=== PATIENT | female | born 1980 | race Caucasian/White ===

== ENCOUNTER 2022-02-04 16:39 | Emergency (ER) | payer OTHER, SELFPAY ==
[2022-02-04 16:58] VITALS: BP 152/78; PULSE 54; RESP 20; TEMP 36.7; O2SAT 100
[2022-02-04 17:31] LABS: Appearance Urine Clear (Clear); Bilirubin Urine Negative (Negative); Blood Urine Negative (Negative); Color Urine Yellow (Yellow); Glucose Urine UA Negative (Negative); Ketones Urine Trace mg/dL (Negative); Leukocyte Esterase Ur 1+ LEU/UL (Negative); Nitrate Urine Negative (Negative); Protein Urine Negative (Negative); Specific Grav Ur 1.015 (1.001-1.035); Urobilinogen Urine 0.2 mg/dL (<2.0)
[2022-02-04 17:45] LABS: Bacteria Urine Trace /hpf; Mucus Urine Rare /lpf; Squamous Epithelial Cell Urine Few /hpf (Few); WBC Urine 31-50 /hpf
[2022-02-04 17:46] LABS: Add Urine Microscopic? YES
--- NOTE | 2022-02-04 18:16 | PC.NURSE ---
patient walked out of ED at this time in no distress. patient reports I have to go or I will have no ride back to my hotel room.
== END 2022-02-04 18:16 | disposition left against medical advice (07) ==
LOC: ANHED 18:31
PROVIDERS: Emergency Provider Emergency Medicine
DX: R30.0 Dysuria (principal); M54.9 Dorsalgia, unspecified
CPT/HCPCS: 81001; 81025; 87077; 87086; 87088; 99199

== ENCOUNTER 2024-02-29 18:19 | Emergency (ER) | payer OTHER, SELFPAY ==
--- NOTE | ~2024-02-29 | XR_ITS ---
EXAMINATION: XR chest 2V DATE: 02/29/2024 19:35 INDICATION: Cough and fever TECHNIQUE: frontal and lateral views of the chest were obtained. COMPARISON: None FINDINGS: Small calcified nodule at the left upper lung zone consistent with old granulomatous disease. No othe r airspace opacities, pulmonary edema, pleural effusion or pneumothorax. The cardiomediastinal silhou ette is normal. Visualized bones and soft tissues are unremarkable. IMPRESSION: 1. No acute cardiopulmonary disease. Reviewed, dictated and finalized at location A. [facility]
[2024-02-29 18:42] VITALS: BP 102/62; PULSE 130; RESP 15; TEMP 36.9; O2SAT 99
[2024-02-29 18:57] VITALS: O2SAT 99
--- NOTE | 2024-02-29 20:27 | ECG_ITS ---
Test Date: 2024-02-29 20:48:26 Measurements Intervals [place] Rate: 84 P: 70 [place]: 144 QRS: 60 QRSD: 76 T: 66 QT: 344 QTc: 409 Interpretive Statements SINUS RHYTHM POSSIBLE LEFT ATRIAL ENLARGEMENT POSSIBLE LEFT VENTRICULAR HYPERTROPHY BORDERLINE ECG No previous ECG available for comparison Electronically Signed On 03-01-2024 07:21:50 [employer] by Alireza Cook D.O.
[2024-02-29 20:29] LABS: Influenza A QL RT-PCR Negative (Negative); Influenza B QL RT-PCR Negative (Negative); RSV RNA, RT-PCR Negative (Negative); SARS-CoV-2 RNA PCR Negative (Negative)
--- NOTE | 2024-02-29 20:38 | ED_ITS ---
HPI - URI/Sore Throat General Chief Complaint: Upper Respiratory Infection Stated Complaint: cough, fever Time Seen by Provider: 02/29/24 19:24 Source: patient Mode of arrival: ambulatory Limitations: no limitations History of Present Illness HPI Narrative: This is a 43-year-old female that presents to the emergency department for cold symptoms present over the last 2 weeks. Reports fever, cough, congestion, hea dache, sore throat. Reports her children have recovered and she does not seem to be getting any better. Reports she has not wanted to eat or drink much. She is concerned she may be dehydrated. Reports she has had some dysuria. Related Data Allergies Allergy/AdvReac Type Severity Reaction Status Date / Time No Known Allergies Allergy Verified 02/29/24 18:58 Review of Systems Review of Systems: CONSTITUTIONAL: Reports fever ENT: Reports rhinorrhea, congestion, sore throat RESPIRATORY: Reports cough GASTROINTESTINAL: Denies abdominal pain, nausea, vomiting, or diarrhea. GENITOURINARY: Reports dysuria All systems reviewed & are unremarkable except as noted in HPI and below PMFSH Past Medical History Medical History (Updated 02/29/24 @ 23:37 by Nyla Al PA-C) History of anxiety Social History Social History (Updated 02/29/24 @ 20:40 by Nyla Al PA-C) Smoking status: Current every day smoker Tobacco type: e-cigarettes/vaping Exam Narrative: GENERAL: Well-appearing, well-nourished, and in no acute distress. HEAD: Normocephalic, atraumatic. EYES: EOMI. ENT: Nares clear, no rhinorrhea or epistaxis. Mucous membranes moist. Oropharynx without tonsillar hypertrophy exudate or other lesions. Bilateral TMs pearly greco non-bulging NECK: Supple. No adenopathy or masses. CHEST: No respiratory distress. Mild expiratory wheezing. No rales or rhonchi HEART: Regular rate and rhythm. No murmur heard. Normal peripheral pulses. EXTREMITIES: Normal range of motion. No edema. SKIN: Warm, dry, no rash. NEURO: No focal deficits. Alert and oriented x3. PSYCH: Anxious Course Course Emergency Course: patient updated on her workup and agrees with plan of care Vital Signs Vital signs: Vital Signs Temperature 98.5 F 02/29/24 18:42 Pulse Rate 130 H 02/29/24 18:42 Respiratory Rate 15 02/29/24 18:42 Blood Pressure 102/62 02/29/24 18:42 Pulse Oximetry 99 02/29/24 18:42 Oxygen Delivery Room Air 02/29/24 18:42 Temperature 98.5 F 02/29/24 18:42 Pulse Rate 85 02/29/24 21:22 Respiratory Rate 18 02/29/24 21:22 Blood Pressure 102/62 02/29/24 18:42 Pulse Oximetry 99 02/29/24 18:57 Oxygen Delivery Room Air 02/29/24 18:57 MDM - URI/Sore Throat MDM Narrative Medical decision making narrative: Patient presents to the emergency department for viral symptoms ongoing over the last couple of weeks. Also reporting urinary symptoms. She is afebrile and nontoxic appearing. Tachycardic upon arrival, this normalized with IV fluids. CBC with mild leukocytosis to 11.7. Metabolic panel without concerning findings. Urine with evidence of infection. This was sent for culture. Influenza, RSV and COVID screens are negative. Patient wished to be tested for STDs. Chlamydia, gonorrhea and Trichomonas negative chest x-ray without acute cardiopulmonary abnormality. Patient updated on her workup and agrees with plan of care. She is to follow up with primary provider. She was given warnings to return to the ER Differential Diagnosis Differential diagnosis: Likely upper respiratory infection, sinusitis, viral infection, bronchitis, influenza, pharyngitis and other ( UTI, dehydration) Lab Data Attestation: I reviewed the patient's lab results. 02/29/24 21:01 02/29/24 21:01 Labs: Lab Results 02/29/24 02/29/24 02/29/24 Range/Units 19:48 20:45 20:53 WBC (4.5-10.0) K/mm3 RBC (4.2-5.4) M/mm3 Hgb (12.0-15.0) g/dL Hct (37.0-47.0) % MCV (80-100) fl MCH (26-34) pg MCHC (32-36) g/dl RDW (11.5-14.5) % Plt Count (150-375) k/mm3 MPV (7.4-10.4) fl Immature Gran % (Auto) (0-0.5) % Neut % (Auto) (45.5-73.1) % Lymph % (Auto) (18.3-44.2) % [place] % (Auto) (2.6-8.5) % Eos % (Auto) (0-4.4) % Baso % (Auto) (0.2-1.2) % Lymph # (Auto) (0.9-3.2) K/mm3 [place] # (Auto) (0.1-0.6) K/mm3 Eos # (Auto) (0-0.3) K/mm3 Baso # (Auto) (0.0-0.1) K/mm3 Abs Immat Gran (auto) (0.00-0.031) K/mm3 Absolute Neuts (auto) (1.3-6.7) K/mm3 Absolute Nucleated RBC (0.0-0.012) K/mm3 Nucleated RBC % (0.0-0.2) % Sodium (137-145) mmol/L Potassium (3.4-5.0) mmol/L Chloride (98-107) mmol/L Carbon Dioxide (22-30) mmol/L Anion Gap (4-12) mmol/L BUN (7-17) mg/dL Creatinine (0.7-1.0) mg/dL Estim Creat Clear Calc ml/min Estimated GFR (59 - ) Glucose (65-110) mg/dL Calcium (8.4-10.2) mg/dL Urine Color Yellow (Yellow) Urine Appearance Clear (Clear) Urine pH 8.5 (5.0-9.0) Ur Specific [place] 1.020 (1.001-1.035) Urine Protein 2+ H (Negative) mg/dL Urine Glucose (UA) Negative (Negative) mg/dL Urine Ketones Negative (Negative) mg/dL Ur Blood (Man) Negative (Negative) Urine Nitrate Negative (Negative) Urine Bilirubin Negative (Negative) Urine Urobilinogen 1.0 (<2.0) mg/dL Add Ur Microanalysis Reviewed Leukocyte Esterase Rfl 1+ H (Negative) KURTIS/UL Urine RBC 11-20 H (0-2) /hpf Urine WBC 21-50 H (0-3) /hpf Ur Squamous Epith Cells Occasional (Few) /hpf Urine Bacteria 4+ H /hpf Urine Casts 0-2 Urine Mucus Present /lpf Urine Test Negative C. trachomatis (PCR) Not detected (NOT DETECTE) Influenza A (RT-PCR) Negative (Negative) Influenza B (RT-PCR) Negative (Negative) N. gonorrhoeae (PCR) Not detected (NOT DETECTE) RSV (RT-PCR) Negative (Negative) SARS-CoV-2 RNA (RT-PCR) Negative (Negative) T. vaginalis (PCR) Not detected (NOT DETECTE) 02/29/24 Range/Units 21:01 WBC 11.7 H (4.5-10.0) K/mm3 RBC 4.58 (4.2-5.4) M/mm3 Hgb 12.3 (12.0-15.0) g/dL Hct 37.6 (37.0-47.0) % MCV 82.1 (80-100) fl MCH 26.9 (26-34) pg MCHC 32.7 (32-36) g/dl RDW 14.3 (11.5-14.5) % Plt Count 307 (150-375) k/mm3 MPV 9.9 (7.4-10.4) fl Immature Gran % (Auto) 0.5 (0-0.5) % Neut % (Auto) 77.2 H (45.5-73.1) % Lymph % (Auto) 9.7 L (18.3-44.2) % [place] % (Auto) 12.1 H (2.6-8.5) % Eos % (Auto) 0.2 (0-4.4) % Baso % (Auto) 0.3 (0.2-1.2) % Lymph # (Auto) 1.14 (0.9-3.2) K/mm3 [place] # (Auto) 1.4 H (0.1-0.6) K/mm3 Eos # (Auto) 0.0 (0-0.3) K/mm3 Baso # (Auto) 0.0 (0.0-0.1) K/mm3 Abs Immat Gran (auto) 0.06 H (0.00-0.031) K/mm3 Absolute Neuts (auto) 9.0 H (1.3-6.7) K/mm3 Absolute Nucleated RBC 0.000 (0.0-0.012) K/mm3 Nucleated RBC % 0.0 (0.0-0.2) % Sodium 134 L (137-145) mmol/L Potassium 3.9 (3.4-5.0) mmol/L Chloride 98 (98-107) mmol/L Carbon Dioxide 30 (22-30) mmol/L Anion Gap 6 (4-12) mmol/L BUN 11 (7-17) mg/dL Creatinine 0.60 L (0.7-1.0) mg/dL Estim Creat Clear Calc 75 ml/min Estimated GFR > 60 (59 - ) Glucose 101 (65-110) mg/dL Calcium 8.3 L (8.4-10.2) mg/dL Urine Color (Yellow) Urine Appearance (Clear) Urine pH (5.0-9.0) Ur Specific [place] (1.001-1.035) Urine Protein (Negative) mg/dL Urine Glucose (UA) (Negative) mg/dL Urine Ketones (Negative) mg/dL Ur Blood (Man) (Negative) Urine Nitrate (Negative) Urine Bilirubin (Negative) Urine Urobilinogen (<2.0) mg/dL Add Ur Microanalysis Leukocyte Esterase Rfl (Negative) KURTIS/UL Urine RBC (0-2) /hpf Urine WBC (0-3) /hpf Ur Squamous Epith Cells (Few) /hpf Urine Bacteria /hpf Urine Casts Urine Mucus /lpf Urine Test C. trachomatis (PCR) (NOT DETECTE) Influenza A (RT-PCR) (Negative) Influenza B (RT-PCR) (Negative) N. gonorrhoeae (PCR) (NOT DETECTE) RSV (RT-PCR) (Negative) SARS-CoV-2 RNA (RT-PCR) (Negative) T. vaginalis (PCR) (NOT DETECTE) Imaging Data Radiologist's impression: ITS Impressions Chest X-Ray 02/29/24 19:36 IMPRESSION: 1. No acute cardiopulmonary disease. ECG Data EKG #1: ECG completion date: 02/29/24 EKG Interpretation: normal rate, sinus rhythm, no ST changes and normal QT Critical Care Time Critical Care Time Critical Care Time: No Discharge Plan Discharge Clinical Impression: Acute UTI Acute bronchitis Qualifiers: Bronchitis organism: unspecified organism Qualified Code(s): J20.9 - Acute bron chitis, unspecified Patient Disposition: Home, Self-Care Condition: Improved Instructions: Antibiotic Form, Urinary Tract Infection in Women (ED), Acute Bronchitis (ED) Additional Instructions: Return to the emergency department if you experience fever, chest pain, shortness of breath, abdominal pain with nausea and vomiting, or any other symptoms that are concerning to you. Rest. Remain well hydrated. [id number] pain medication as needed. Albuterol 2 puffs every 4-6 hours as needed for shortness of breath or wheezing. Take oral antibiotic as prescribed Follow up with primary care doctor Prescriptions: New cefdinir 300 mg capsule 300 mg PO Q12H 7 Days Qty: 14 0RF albuterol sulfate 90 mcg/actuation HFA aerosol inhaler 2 puff inhalation QID PRN (Reason: shortness of breath or wheezing) Qty: 8.5 0RF Follow-up/Referrals: UNKNOWN,DOCTOR [Primary Care Provider] -
[2024-02-29] MEDS: SODIUM CHLORIDE 0.9% IV 1,000 ML 999 ML IV CONT (20:58)
[2024-02-29] MEDS: methylPREDNISolone SOD SUCC 125 MG VIAL IV PUSH (20:59)
[2024-02-29] MEDS: KETOROLAC 15 MG/ML VIAL (*BKC) IV PUSH (20:59)
[2024-02-29 21:06] LABS: Basophils Percent Auto 0.3 % (0.2-1.2); Eosinophils Percent Auto 0.2 % (0-4.4); Hematocrit 37.6 % (37.0-47.0); Hemoglobin 12.3 g/dL (12.0-15.0); Immature Granulocyte Absolute 0.06 K/mm3 (0.00-0.031); Immature Granulocyte Percent A 0.5 % (0-0.5); Lymphocytes Absolute Auto 1.14 K/mm3 (0.9-3.2); Lymphocytes Percent Auto 9.7 % (18.3-44.2); Mean Corpuscular HGB Conc 32.7 g/dl (32-36); Mean Corpuscular Hemoglobin 26.9 pg (26-34); Mean Corpuscular Volume 82.1 fl (80-100); Mean Platelet Volume 9.9 fl (7.4-10.4); Monocytes Absolute Auto 1.4 K/mm3 (0.1-0.6); Monocytes Percent Auto 12.1 % (2.6-8.5); Neutrophils Percent Auto 77.2 % (45.5-73.1); Platelet Count Result 307 k/mm3 (150-375); Red Blood Count 4.58 M/mm3 (4.2-5.4); Red Cell Distribution Width 14.3 % (11.5-14.5); White Blood Count 11.7 K/mm3 (4.5-10.0)
[2024-02-29] MEDS: IPRATROPIUM 0.5 MG/ALBUTEROL SULFATE 2.5 MG AMPUL.NEB 3 ML INHALATION (21:09)
[2024-02-29 21:10] VITALS: PULSE 82; RESP 18
[2024-02-29 21:16] LABS: Anion Gap 6 mmol/L (4-12); Blood Urea Nitrogen 11 mg/dL (7-17); Calcium 8.3 mg/dL (8.4-10.2); Carbon Dioxide 30 mmol/L (22-30); Chloride 98 mmol/L (98-107); Estimated CRCL calculation 75 ml/min; Estimated Glomerular Filt Rate > 60; Glucose 101 mg/dL (65-110); Potassium 3.9 mmol/L (3.4-5.0); Sodium 134 mmol/L (137-145)
[2024-02-29 21:17] LABS: Add Urine Microscopic? YES; Appearance Urine Clear (Clear); Bacteria Urine 4+ /hpf; Bilirubin Urine Negative (Negative); Blood Urine Negative (Negative); Color Urine Yellow (Yellow); Glucose Urine UA Negative (Negative); Ketones Urine Negative (Negative); Leukocyte Esterase Ur 1+ LEU/UL (Negative); Mucus Urine Present /lpf; Need Manual Microscopic Reviewed; Nitrate Urine Negative (Negative); Non Pathogenic Casts 0-2; Protein Urine 2+ mg/dL (Negative); Squamous Epithelial Cell Urine Occasional /hpf (Few); WBC Urine 21-50 /hpf (0-3); pH Urine 8.5 (5.0-9.0)
[2024-02-29 21:22] VITALS: PULSE 85; RESP 18
[2024-02-29 22:11] LABS: Trichomonas Vag PCR NOT DETECTED (NOT DETECTE)
[2024-02-29 22:32] LABS: Chlamydia trachomatis NOT DETECTED (NOT DETECTE); Neisseria gonorrhoeae PCR NOT DETECTED (NOT DETECTE)
[2024-02-29 23:26] LABS: Pregnancy On Board Control Positive; Urine Pregnancy Test Negative
[2024-03-01] MEDS: CEFDINIR 300 MG CAPSULE PO (01:07)
[2024-03-01 01:11] VITALS: BP 111/68; PULSE 89; RESP 18; O2SAT 96
== END 2024-03-01 01:12 | disposition home or self-care (01) ==
PROVIDERS: Emergency Provider Physician Assistant
DX: J20.9 Acute bronchitis, unspecified (principal); N39.0 Urinary tract infection, site not specified; Z20.822 Contact with and (suspected) exposure to COVID-19; F17.290 Nicotine dependence, other tobacco product, uncomplicated
CPT/HCPCS: 36415; 71046; 80048; 81001; 81025; 85025; 87086; 87186; 87491; 87591; 87637; 87661; 93005; 94640; 96361; 96374; 96375; 99284; A9270; J1885; J2919; J7030

== ENCOUNTER 2024-03-23 16:14 | Emergency (ER) | payer OTHER, SELFPAY ==
[2024-03-23 16:17] VITALS: BP 105/76; PULSE 98; RESP 20; TEMP 36.1; O2SAT 100
[2024-03-23 18:00] LABS: Influenza A QL RT-PCR Negative (Negative); Influenza B QL RT-PCR Negative (Negative); RSV RNA, RT-PCR Negative (Negative); SARS-CoV-2 RNA PCR Negative (Negative)
--- NOTE | 2024-03-23 18:18 | ED.GENADULT ---
[facility] - General Adult General Chief complaint: Unspecified Stated complaint: Upper Resp and UTI Time Seen by Provider: 03/23/24 17:03 Source: patient Mode of arrival: ambulatory Limitations: no limitations History of Present Illness HPI narrative: This is a 43-year-old female who presents to the ED for multiple complaints. Patient states that she was recently here and treated for bronchitis and UTI. She took the full course of cefdinir is prescribed for the UTI. Patient states that she has been having some intermittent low back pains, hot flashes, chills and shortness of breath. She states that she has felt very anxious. She just moved to this area from [facility] recently. She is trying to get in with a new psychiatrist currently. She has been out of her clonazepam 1 mg and sertraline since Tuesday night. She states that she does not want to be on the clonazepam anymore but thinks that some the symptoms may be due to increased anxiety. Reports that her cough has resolved since using the albuterol as well. Per chart review, recent urine culture was fully susceptible 3rd and cephalosporin. Related Data Allergies Allergy/AdvReac Type Severity Reaction Status Date / Time No Known Allergies Allergy Verified 03/23/24 16:16 Review of Systems Review of Systems: All systems as dictated in [facility] Past Medical History Medical History (Updated 03/23/24 @ 18:23 by Kulwinder Simon PA-C) History of anxiety Social History Social History (Updated 02/29/24 @ 20:40 by Nyla Al PA-C) Smoking status: Current every day smoker Tobacco type: e-cigarettes/vaping Exam Narrative: GENERAL: Well-appearing, well-nourished, and in no acute distress. HEAD: Normocephalic, atraumatic. EYES: PERRLA and EOMI. ENT: Nares clear, no rhinorrhea or epistaxis. Mucous membranes moist. Oropharynx without tonsillar hypertrophy exudate or other lesions. NECK: Supple. No adenopathy or masses. CHEST: No respiratory distress. Clear to auscultation. No wheezes rales or rhonchi HEART: Regular rate and rhythm. No murmur heard. Normal peripheral pulses. ABDOMEN: Soft, nontender, nondistended, normal active bowel sounds. MSK: Normal range of motion. No edema. SKIN: Warm, dry, no rash. NEURO: Alert and oriented x4. No focal deficits. PSYCH: Normal mood and affect. Course Vital Signs Vital signs: Vital Signs Temperature 97.0 F L 03/23/24 16:17 Pulse Rate 98 03/23/24 16:17 Respiratory Rate 20 03/23/24 16:17 Blood Pressure 105/76 03/23/24 16:17 Pulse Oximetry 100 03/23/24 16:17 Oxygen Delivery Room Air 03/23/24 16:17 Temperature 97.0 F L 03/23/24 16:17 Pulse Rate 98 03/23/24 16:17 Respiratory Rate 20 03/23/24 16:17 Blood Pressure 105/76 03/23/24 16:17 Pulse Oximetry 100 03/23/24 16:17 Oxygen Delivery Room Air 03/23/24 16:17 Medical Decision Making MDM Narrative Medical decision making narrative: This is a female who presents to the ED for multiple complaints. Vitals are normal. Exam is benign. She is mildly anxious. She has been out of her regular clonazepam and sertraline over the past week which I do feel or because of her symptoms today. Urinalysis shows improvement from previous a couple of weeks ago in which she was treated with cefdinir for UTI. Viral swabs negative. I offered further workup with laboratory and imaging studies, however I advised that I do not feel this is absolutely necessary today. We discussed that her symptoms are most likely coming from cutting off her clonazepam and sertraline cold turkey, due to being out of medications and in between doctors. I prescribed very short course of clonazepam for her to start taking half doses every other day in an effort to wean off, as she does not want to be on the Klonopin anymore. Prescribed low-dose sertraline for the next month until she can talk to her psychiatrist further about stopping these medications. Patient will be discharged in stable condition. Supportive measures discussed and return precautions given. Patient is understanding and agreeable with plan for discharge with PCP follow-up. Vital Signs Vital Signs: Vital Signs Temperature 97.0 F L 03/23/24 16:17 Pulse Rate 98 03/23/24 16:17 Respiratory Rate 20 03/23/24 16:17 Blood Pressure 105/76 03/23/24 16:17 Pulse Oximetry 100 03/23/24 16:17 Oxygen Delivery Room Air 03/23/24 16:17 Temperature 97.0 F L 03/23/24 16:17 Pulse Rate 98 03/23/24 16:17 Respiratory Rate 20 03/23/24 16:17 Blood Pressure 105/76 03/23/24 16:17 Pulse Oximetry 100 03/23/24 16:17 Oxygen Delivery Room Air 03/23/24 16:17 Lab Data Labs: Lab Results 03/23/24 03/23/24 Range/Units 17:16 17:57 Urine Color Dark yellow (Yellow) Urine Appearance Cloudy H (Clear) Urine pH 5.5 (5.0-9.0) Ur Specific [place] 1.025 (1.001-1.035) Urine Protein Negative (Negative) mg/dL Urine Glucose (UA) Negative (Negative) mg/dL Urine Ketones Trace H (Negative) mg/dL Ur Blood (Man) Negative (Negative) Urine Nitrate Negative (Negative) Urine Bilirubin 1+ H (Negative) Urine Urobilinogen 0.2 (<2.0) mg/dL Add Ur Microanalysis Reviewed Leukocyte Esterase Rfl Trace H (Negative) KURTIS/UL Urine RBC 3-5 H (0-2) /hpf Urine WBC 6-10 H (0-3) /hpf Ur Squamous Epith Cells Few (Few) /hpf Calcium Oxalate Crystal Present (None) /hpf Urine Bacteria 2+ H /hpf Urine Casts 0-2 Hyaline Casts Present (None) /lpf Urine Mucus Present /lpf Influenza A (RT-PCR) Negative (Negative) Influenza B (RT-PCR) Negative (Negative) RSV (RT-PCR) Negative (Negative) SARS-CoV-2 RNA (RT-PCR) Negative (Negative) Discharge Plan Discharge Clinical Impression: Anxiety Patient Disposition: Home, Self-Care Condition: Stable Instructions: Antibiotic Form Additional Instructions: Your exam today is reassuring. Please take half doses of the clonazepam and in order to wean down off of it. You can also start taking a lower dose of the sertraline daily. Follow-up with your psychiatrist about taking these medications in new doses. If you have any new or worsening symptoms please return to the ER for further evaluation. Patient Language: Amharic Prescriptions: New sertraline 25 mg tablet 25 mg PO DAILY Qty: 30 0RF clonazepam 1 mg tablet 0.5 mg PO DAILY Qty: 3 0RF No Action cefdinir 300 mg capsule 300 mg PO Q12H 7 Days Qty: 14 0RF albuterol sulfate 90 mcg/actuation HFA aerosol inhaler 2 puff inhalation QID PRN (Reason: shortness of breath or wheezing) Qty: 8.5 0RF Follow-up/Referrals: UNKNOWN,DOCTOR [Primary Care Provider] - Time of Disposition: 18:25
[2024-03-23 18:20] LABS: Add Urine Microscopic? YES; Appearance Urine Cloudy (Clear); Bacteria Urine 2+ /hpf; Bilirubin Urine 1+ (Negative); Blood Urine Negative (Negative); Calcium Oxalate Crystals Urine Present /hpf; Color Urine Dark Yellow (Yellow); Glucose Urine UA Negative (Negative); Hyaline Casts Urine Present /lpf; Ketones Urine Trace mg/dL (Negative); Leukocyte Esterase Ur Trace LEU/UL (Negative); Mucus Urine Present /lpf; Need Manual Microscopic Reviewed; Nitrate Urine Negative (Negative); Non Pathogenic Casts 0-2; Protein Urine Negative (Negative); Specific Grav Ur 1.025 (1.001-1.035); Squamous Epithelial Cell Urine Few /hpf (Few); Urobilinogen Urine 0.2 mg/dL (<2.0); pH Urine 5.5 (5.0-9.0)
== END 2024-03-23 18:50 | disposition home or self-care (01) ==
PROVIDERS: Emergency Provider Physician Assistant
DX: F41.9 Anxiety disorder, unspecified (principal); F17.290 Nicotine dependence, other tobacco product, uncomplicated; Z87.440 Personal history of urinary (tract) infections; Z79.899 Other long term (current) drug therapy
CPT/HCPCS: 81001; 87086; 87637; 99283

== ENCOUNTER 2024-04-10 17:26 | Emergency (ER) | payer OTHER, SELFPAY ==
--- NOTE | ~2024-04-10 | XR_ITS ---
CHEST RADIOGRAPH, PA AND LATERAL CLINICAL HISTORY: cough , +vaping . COMPARISON: 02/29/2024 TECHNIQUE: PA and lateral views of the chest. FINDINGS The cardiomediastinal silhouette is unremarkable. The lungs are clear. Visualized osseous structures and soft tissues are unremarkable. IMPRESSION: No focal infiltrate or effusion. Reviewed, dictated and finalized at location A. DRILL OPERATOR
--- NOTE | 2024-04-10 17:31 | ED.URI ---
HPI - URI/Sore Throat General Chief Complaint: Upper Respiratory Infection Stated Complaint: COUGH Time Seen by Provider: 04/10/24 17:45 Source: patient, RN notes reviewed and old records reviewed Mode of arrival: ambulatory Limitations: no limitations History of Present Illness HPI Narrative: 43-year-old female presents to the [facility] with complaints of a cough x1 week. No treatment prior to arrival. Related Data Home Medications ?Medication ?Instructions ?Recorded ?Confirmed ?Last Taken ?Type clonazepam 2 mg tablet mg 04/10/24 Unknown History methylphenidate HCl 27 mg mg PO 04/10/24 Unknown History tablet,extended release 24 hr (Concerta) sertraline 50 mg tablet mg 04/10/24 Unknown History Allergies Allergy/AdvReac Type Severity Reaction Status Date / Time No Known Allergies Allergy Verified 04/10/24 17:35 Review of Systems Review of Systems: All systems reviewed & are unremarkable except as noted in HPI and below Constitutional: Constitutional: Reports no additional constitutional complaints ENT: Reports system reviewed and no additional complaints, except as documented Cardiovascular: Cardiovascular: Reports no additional cardiovascular complaints, Denies chest pain and Denies dyspnea Respiratory: Respiratory: Reports as per HPI, Denies chest congestion, Reports cough and Denies dyspnea Musculoskeletal: Musculoskeletal: Reports no additional musculoskeletal complaints Integumentary/Breasts: Skin/Breast: Reports system reviewed and no additional complaints, except as docu PMFSH Past Medical History Medical History History of anxiety Social History Social History Smoking status: Current every day smoker Tobacco type: e-cigarettes/vaping Comments At the time of my signature, I reviewed and agree with the nursing past medical, surgical, social, and family history. There is no relevant family history pertinent to the patient complaint. Exam Const: General: cooperative, healthy appearing, comfortable, no acute distress, well developed, alert and well nourished Nutritional Appearance: well nourished Orientation/consciousness: patient oriented x3 Limitations: no limitations HENMT: Head: normal to inspection Ears: hearing grossly normal bilaterally, external ears normal, TM's normal bilaterally, EAC's normal, mastoids normal and no periauricular adenopathy Mouth: Yes Normal oral and palatal mucosa present, Yes lip normal, Yes tongue normal and Yes moist mucous membranes Throat: posterior oropharynx normal, uvula midline and no uvular edema Eyes: General: appearance normal, both eyes and all related structures Alignment and Position: alignment normal Neck: Neck: normal visual inspection, full ROM, no lymphadenopathy and no meningeal signs Chest: Chest palpation & inspection: normal inspection of the chest Resp: Effort & Inspection: normal respiratory effort and able to speak in complete sentences Auscultation: no crackles, no rales, no rhonchi and wheezes expiratory wheezes and scattered wheezes Cardio: Rate: regular rate Skin: General skin exam: normal color and no rashes or lesions noted Neuro: General: patient oriented x3, gait normal, moves all extremities and no meningeal signs Cognition (Neuro): normal cognition Speech: normal speech Gait exam (Neuro): Normal gait present Extrem: General: normal to inspection, full ROM, capillary refill normal and normal gait Psych: Appearance: grossly normal and well kempt Mental Status: mental status grossly normal Speech and movement: Normal speech and movement present and Clear speech present Affect: normal affect Attitude: cooperative Course Course Level of Care: Express Care Visit Vital Signs Vital signs: Vital Signs Temperature 98.1 F 04/10/24 17:49 Pulse Rate 92 04/10/24 17:49 Respiratory Rate 16 04/10/24 17:49 Blood Pressure 117/78 04/10/24 17:49 Pulse Oximetry 100 04/10/24 17:49 Oxygen Delivery Room Air 04/10/24 17:49 Temperature 98.1 F 04/10/24 17:49 Pulse Rate 92 04/10/24 17:49 Respiratory Rate 16 04/10/24 17:49 Blood Pressure 117/78 04/10/24 17:49 Pulse Oximetry 100 04/10/24 17:49 Oxygen Delivery Room Air 04/10/24 17:49 Reviewed MDM - URI/Sore Throat MDM Narrative Medical decision making narrative: Patient sitting comfortably in exam room. Nontoxic, vitals stable. Patient in no acute distress. Patient presents to 1 8 history of cough, congestion and wheezing. Patient's x-rays negative. Patient appropriate for outpatient treatment and follow-up of bronchitis. Discharge instructions reviewed with patient, as well as provided in writing per nursing staff. The instructions also include specific and strict return/GO TO THE ER as well as f/u information. All questions have been answered, and the patient deny any further questions with discharge and discharge plan. Some parts of this dictation were generated by voice recognition software and may contain typographical and/or grammatical inaccuracies. Differential Diagnosis Differential diagnosis: Likely upper respiratory infection, otitis media, sinusitis, viral infection and bronchitis Imaging Data Radiologist's impression: CHEST RADIOGRAPH, PA AND LATERAL CLINICAL HISTORY: cough , +vaping . COMPARISON: 02/29/2024 TECHNIQUE: PA and lateral views of the chest. FINDINGS The cardiomediastinal silhouette is unremarkable. The lungs are clear. Visualized osseous structures and soft tissues are unremarkable. IMPRESSION: No focal infiltrate or effusion. Critical Care Time Critical Care Time Critical Care Time: No Discharge Plan Discharge Clinical Impression: Bronchitis Patient Disposition: Home, Self-Care Condition: Stable Instructions: Antibiotic Form, Acute Bronchitis (ED) Additional Instructions: Your symptoms are likely due to a viral illness, which is not treated with antibiotics. Typically viral infections last 7-10 days, can linger for couple of weeks. It is very important to treat your symptoms. Drink plenty of water, Gatorade, Pedialyte, ice pops or Jell-O. -Alternate Tylenol and Motrin per package directions for fever or pain. You can alternate every 4 hours -Antihistamine medication such as Zyrtec/Claritin/Samantha during the day can help improve symptoms. -doing daily nasal irrigations can help relieve pressure your sinuses. Things like a Neti pot -Use Flonase twice a day for 5 days then daily to help reduce the inflammation and dry up your sinuses. -You can also use Mucinex. Be sure to drink plenty of water with this medication at least 8 ounces with every dose and it is important to drink 8 to 10 glasses of water per day. Water is a natural decongestant -Eat and drink things that are easy to swallow, like tea or soup, or popsicles. -Oral rinses such as: Salt water gargles and/or may use topical anesthetic (eg. Chloraseptic spray) or lozenges to relieve dryness or throat pain). -Frequent hand washing or hand emergency services professional is one of the best ways to prevent spread of infection. -Using a vaporizer or humidifier at night will also help thin secretions and help with coughing up phlegm. -Follow up with primary care provider in 7-10 days if condition is not improving - For new or worsening symptoms go directly to the nearest ER Patient Language: Chinese Prescriptions: New prednisone 20 mg tablet See Rx Instructions .Route .COMPLEX Qty: 9 0RF Rx Instructions: Take 40 mg daily for 3 days, 20 mg daily for 3 days albuterol sulfate 90 mcg/actuation HFA aerosol inhaler 2 puff inhalation QID PRN (Reason: shortness of breath or wheezing) Qty: 6.7 0RF (DME) Aerochamber MV Spacer See Rx Instructions .Route Qty: 1 0RF Rx Instructions: As directed No Action clonazepam 2 mg tablet sertraline 50 mg tablet methylphenidate HCl [Concerta] 27 mg tablet extended release 24hr PO albuterol sulfate 90 mcg/actuation HFA aerosol inhaler 2 puff inhalation QID PRN (Reason: shortness of breath or wheezing) Qty: 8.5 0RF clonazepam 1 mg tablet 0.5 mg PO DAILY Qty: 3 0RF Follow-up/Referrals: UNKNOWN,DOCTOR [Non-Staff] - Time of Disposition: 18:44
[2024-04-10 17:49] VITALS: BP 117/78; PULSE 92; RESP 16; TEMP 36.7; O2SAT 100
== END 2024-04-10 18:45 | disposition home or self-care (01) ==
PROVIDERS: Emergency Provider Nurse Practitioner
DX: J20.9 Acute bronchitis, unspecified (principal); F41.9 Anxiety disorder, unspecified; F17.290 Nicotine dependence, other tobacco product, uncomplicated
CPT/HCPCS: 71046; 99213; G0463

== ENCOUNTER 2024-05-09 19:08 | Emergency (ER) | payer OTHER, SELFPAY ==
--- NOTE | 2024-05-09 19:11 | ED.EYEPROB ---
HPI - Eye Problem General Chief complaint: Eye Problems Stated complaint: EYE REDNESS Time Seen by Provider: 05/09/24 19:11 Source: patient Mode of arrival: ambulatory Limitations: no limitations History of Present Illness HPI Narrative: Patient is a 43-year-old female who presents with left eye pain, redness, drainage, photophobia for 6 days after playing with her grandchildren in being poked in the left eye. Reports vision is cloudy like a film over the eye. Does report drainage with crusting when she wakes up. Related Data Home Medications ?Medication ?Instructions ?Recorded ?Confirmed ?Last Taken ?Type clonazepam 2 mg tablet mg 04/10/24 Unknown History methylphenidate HCl 27 mg mg PO 04/10/24 Unknown History tablet,extended release 24 hr (Concerta) sertraline 50 mg tablet mg 04/10/24 Unknown History Allergies Allergy/AdvReac Type Severity Reaction Status Date / Time No Known Allergies Allergy Verified 05/09/24 19:19 Review of Systems Review of Systems: All systems reviewed & are unremarkable except as noted in HPI and below Constitutional: Constitutional: Denies body ache(s), Denies fever(s), Denies headache(s), Denies malaise and Denies weakness Eyes: Eyes: Reports blurry vision, Reports eye discharge, Reports irritation, Denies loss of vision and Reports eye pain ENT: Denies otalgia, Denies headache(s), Denies nasal discharge, Denies sinus pain and Denies sore throat Cardiovascular: Cardiovascular: Denies chest pain, Denies irregular heart rhythm and Denies dyspnea Respiratory: Respiratory: Denies dyspnea Gastrointestinal: Gastrointestinal: Denies abdominal pain, Denies diarrhea, Denies nausea and Denies vomiting Musculoskeletal: Musculoskeletal: Denies back pain, Denies myalgias and Denies arthralgias Integumentary/Breasts: Skin/Breast: Denies pruritus and Denies rash Neurologic: Denies headache(s), Denies loss of vision and Denies weakness Psychiatric: Psychiatric: Reports no additional psychiatric complaints Allergic/Immunologic: Allergic/Immunologic: Reports itchy eyes PMFSH Past Medical History Medical History History of anxiety Social History Social History Smoking status: Current every day smoker Tobacco type: e-cigarettes/vaping Comments At time of signature, agree with nursing past medical, surgical, social and family history. There is no relevant family history pertinent to the presenting complaint. Exam Const: General: cooperative, healthy appearing, comfortable, no acute distress and well nourished Nutritional Appearance: well nourished Orientation/consciousness: patient oriented x3 Limitations: no limitations HENMT: Head: normal to inspection, normocephalic and atraumatic Ears: external ears normal Face/Nose/Sinus: Normal external nose present, normal facial exam and face symmetric Face and sinus: normal facial exam and face symmetric Mouth: Yes lip normal Eyes: General: appearance normal, both eyes and all related structures Visual Finch: normal visual finch by confrontation Alignment and Position: alignment normal and position normal Periorbital: periorbital findings normal Eyelids: eyelids normal Conjunctivae: conjunctival abnormality left conjunctival injection diffuse Sclera: scleral abnormality left scleral injection diffuse Pupils: Equal, round and reactive pupils present EOM: EOMs intact bilaterally Direct Ophthalmoscopy: photophobia Other: No hyphema, no foreign body under the lids. Neck: Neck: normal visual inspection, full ROM, no lymphadenopathy and no meningeal signs Chest: Chest palpation & inspection: normal inspection of the chest Resp: Effort & Inspection: normal respiratory effort and able to speak in complete sentences Auscultation: clear to auscultation bilaterally Cardio: Rate: regular rate Rhythm: regular rhythm Heart sounds: S1 normal heart sound present and S2 normal heart sound present GI: Inspection: normal to inspection Skin: General skin exam: normal color and no rashes or lesions noted Neuro: General: patient oriented x3, moves all extremities and no meningeal signs Cranial nerves: Yes Equal, round and reactive pupils present Speech: normal speech Gait exam (Neuro): Normal gait present Extrem: General: normal to inspection, full ROM and no edema Psych: Appearance: grossly normal and well kempt Mental Status: mental status grossly normal Speech and movement: Normal speech and movement present Affect: normal affect Attitude: cooperative Thought process: Normal thought process present Course Course Emergency Course: Patient is aware of diagnosis, understands and agrees to treatment plan. Anticipatory guidance given. Patient agrees to follow-up as directed and is aware of reasons to seek care at the emergency department. Portions of this record may have been created with voice recognition software Level of Care: Express Care Visit Vital Signs Vital signs: Reviewed MDM - Eye Problem MDM Narrative Medical decision making narrative: Pt well hydrated appearing, in no respiratory distress, hemodynamically stable. Recommend supportive care. The patient is stable at time of discharge the clinical impression was discussed and the patient was given the opportunity to ask questions, which were addressed as completely as possible given the information available at present. Anticipatory guidance and return to care precautions were discussed and the importance of primary care follow-up was stressed and encouraged. The patient voiced understanding of the plan, indications to return, and the need for follow-up. Exam findings show no acute concerns or changes Patient is appropriate for outpatient treatment and follow-up. Differential Diagnosis Differential diagnosis: Likely corneal abrasion, conjunctivitis and periorbital cellulitis Medical Records Attestation: I reviewed the patient's medical records. Discharge Plan Discharge Clinical Impression: Bacterial conjunctivitis Patient Disposition: Home, Self-Care Condition: Stable Instructions: Conjunctivitis (ED) Additional Instructions: Do not touch or rub your eye. Use a warm or cool washcloth on your eye for comfort Use eyedrops as directed Practice good handwashing and hygiene to prevent spread of infection You may take Tylenol or ibuprofen for pain Follow-up with PCP or county records management officer if condition is not improving in 2-3days. Go to the emergency room if you have pain behind your eye, pressure behind her eye, difficulty seeing, or other severe symptoms You should follow-up with an eye doctor within the next 72 hours Concha: Fidelia- [phone] [facility] [phone] [facility] [phone] Claus: [facility] [phone] or [phone] [facility] [phone] [facility] [phone] [facility] [phone] [facility]- [phone] Patient Language: Cape Verdean Prescriptions: New ofloxacin 0.3 % drops See Rx Instructions .ROUTE .COMPLEX Qty: 15 0RF Rx Instructions: put 1-2 drps into left eye every 2-4 h x 2 days, then 1-2 drps 4 times/day days 3-7 No Action clonazepam 2 mg tablet sertraline 50 mg tablet methylphenidate HCl [Concerta] 27 mg tablet extended release 24hr PO prednisone 20 mg tablet See Rx Instructions .Route .COMPLEX Qty: 9 0RF Rx Instructions: Take 40 mg daily for 3 days, 20 mg daily for 3 days albuterol sulfate 90 mcg/actuation HFA aerosol inhaler 2 puff inhalation QID PRN (Reason: shortness of breath or wheezing) Qty: 6.7 0RF (DME) Aerochamber MV Spacer See Rx Instructions .Route Qty: 1 0RF Rx Instructions: As directed albuterol sulfate 90 mcg/actuation HFA aerosol inhaler 2 puff inhalation QID PRN (Reason: shortness of breath or wheezing) Qty: 8.5 0RF clonazepam 1 mg tablet 0.5 mg PO DAILY Qty: 3 0RF Follow-up/Referrals: Shawna,Dottie [Other] - 3 Days Stand Alone Forms: Work/School Release IP Time of Disposition: 19:23
[2024-05-09 19:15] VITALS: BP 108/74; PULSE 79; RESP 16; TEMP 37; O2SAT 100
== END 2024-05-09 19:25 | disposition home or self-care (01) ==
PROVIDERS: Emergency Provider Nurse Practitioner Family
DX: H10.9 Unspecified conjunctivitis (principal); F17.290 Nicotine dependence, other tobacco product, uncomplicated; F41.9 Anxiety disorder, unspecified
CPT/HCPCS: 99213; G0463

== ENCOUNTER 2024-11-30 01:11 | Emergency (ER) | payer OTHER, SELFPAY ==
[2024-11-30 01:13] VITALS: BP 92/55; PULSE 96; RESP 17; TEMP 36.7; O2SAT 100
--- OUTSIDE RECORDS SUMMARY | 2024-11-30 01:15 | XMS_ITS | Clinical Summary ---
Author Organization [facility] Address [address] [place] [id number] Care Team Providers Care Hospice Consultant Name Role Phone Unavailable Primary Care Provider Unavailabl e Social History Tobacco Use Types Packs/Day Years Used Date Smoking Tobacco: Never Assessed Comments Unknown Sex and Gender Information Value Date Recorded Sex Assigned at Not on file Legal Sex Female 5:36 PM CDT Gender Identity Not on file Sexual Orientation Not on file Plan of Treatment Health Maintenance Due Date Last Done Comments Cervical Cancer Screening Pa p Smear (Age 30 to 64) Every 3 Years 1979 Colorectal Cancer Screening Colonoscopy (10 Years) 1979 Annual Physical 06/09/1982 Hepatitis C 06/09/1997 DTaP, Tdap and Td Vaccines ( 1 - Tdap) 06/09/1998 Hepatitis B Vaccines (1 of 3 - 19+ 3-dose series) 06/09/1998 HPV Vaccines (1 - 3-dose SCD M series) 06/09/2006 Cervical Cancer Screening Pa p with HPV Testing (Age 30 to 64) Every 5 Years 06/09/2009 Cervical Cancer Screening with HPV 06/09/2009 Mammogram Screening 2019 COVID-19 Vaccine (2023-2 5 season) 2023 Meningococcal B Vaccine Aged Out No l onger eligible based on patient's age to complete this topic Meningococcal Vaccine Aged Out No yong moni eligible based on patient's age to complete this topic Pneumococcal Vaccine: Pediat rics (0 to 5 Years) and At-Risk Patients (6 to 49 Years) Aged Out No longer eligible b ased on patient's age to complete this topic RSV Immunizations Under 20 Months Aged Out No longer eligible based on patient's age to complete this topic
--- OUTSIDE RECORDS SUMMARY | 2024-11-30 01:15 | XMS_ITS | Clinical Summary ---
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
[2024-11-30 01:54] LABS: Hematocrit 28.0 % (37.0-47.0); Hemoglobin 8.2 g/dL (12.0-15.0); Immature Granulocyte Percent A 0.3 % (0-0.5); Lymphocytes Absolute Auto 2.39 K/mm3 (0.9-3.2); Mean Corpuscular HGB Conc 29.3 g/dl (32-36); Mean Corpuscular Hemoglobin 21.5 pg (26-34); Mean Corpuscular Volume 73.5 fl (80-100); Nucleated Red Blood Cells Absolute Auto 0.000 K/mm3 (0.0-0.012); Nucleated Red Blood Cells Perc 0.0 % (0.0-0.2); Platelet Count Result 332 k/mm3 (150-375); Red Blood Count 3.81 M/mm3 (4.2-5.4); White Blood Count 6.9 K/mm3 (4.5-10.0)
[2024-11-30 01:56] VITALS: BP 83/64; PULSE 79; RESP 18; O2SAT 100
[2024-11-30 02:02] LABS: INR 1.1; Prothrombin Time 14.3 Seconds (11.1-14.7)
[2024-11-30 02:03] LABS: Partial Thromboplastin Time 28.0 Seconds (22.3-36.8)
[2024-11-30 02:05] LABS: Alanine Aminotransferase 17 U/L (6-35); Albumin Level 3.7 g/dL (3.5-5.1); Alkaline Phosphatase 75 U/L (38-126); Anion Gap 6 mmol/L (4-12); Aspartate Amino Transferase 30 U/L (14-36); Band Neutrophils Percent 0 % (0-6); Bilirubin,Total 0.2 mg/dL (0.2-1.3); Blood Urea Nitrogen 14 mg/dL (7-17); Calcium 8.2 mg/dL (8.4-10.2); Carbon Dioxide 28 mmol/L (22-30); Chloride 101 mmol/L (98-107); Estimated CRCL calculation 48 ml/min; Estimated Glomerular Filt Rate 58; Glucose 88 mg/dL (65-110); Hypochromasia 1+; Ovalocytes 1+; Potassium 3.9 mmol/L (3.4-5.0); Schistocytes None Seen; Sodium 135 mmol/L (137-145); Total Protein 6.5 g/dL (6.3-8.2)
[2024-11-30 02:21] LABS: Beta HCG Quantitative < 2.39 mIU/ML
--- NOTE | 2024-11-30 03:45 | ED.GENADULT ---
HPI - General Adult General Chief complaint: Vaginal Bleeding Stated complaint: vaginal bleeding Time Seen by Provider: 11/30/24 01:46 History of Present Illness HPI narrative: This is a 44-year-old female presenting ED for heavy menstrual bleeding. Patient started her period Tuesday of this week. It had been normal up until today when she bled through her menstrual pad. She is blood multiple pads over the last 8 hours with passage of large amount of clots. Pain associated with menstrual cramping. She started to feel dizzy lightheaded with perioral tingling and came to the ED for evaluation. Patient is not had her tubes tied several years ago. She does not typically have heavy periods. Her period has been regular once per month. She is concerned that she may be going through menopause. Related Data Home Medications ?Medication ?Instructions ?Recorded ?Confirmed ?Last Taken ?Type clonazepam 2 mg tablet mg 04/10/24 Unknown History methylphenidate HCl 27 mg mg PO 04/10/24 Unknown History tablet,extended release 24 hr (Concerta) sertraline 50 mg tablet mg 04/10/24 Unknown History Allergies Allergy/AdvReac Type Severity Reaction Status Date / Time No Known Allergies Allergy Verified 11/30/24 01:12 [facility] Past Medical History Medical History History of anxiety Social History Social History Smoking status: Current every day smoker Tobacco type: e-cigarettes/vaping Exam Narrative: APPEARANCE: No apparent distress. Head: atraumatic. EYES: EOMI, NOSE: Atraumatic NECK: Trachea midline RESPIRATORY: No increased rate of breathing CARDIOVASCULAR: RRR, ABDOMINAL: Non-distended soft nontender no guarding rebound Pelvic exam performed: Scant amount of blood the vaginal vault with no clots MUSCULOSKELETAl: No obvious deformities NEURO: Alert. Moving 4/4 extremities SKIN:: Warm, dry. Normal color PSYCHIATRIC: Normal affect Course Vital Signs Vital signs: Vital Signs Temperature 98.0 F 11/30/24 01:13 Pulse Rate 96 11/30/24 01:13 Respiratory Rate 17 11/30/24 01:13 Blood Pressure 92/55 L 11/30/24 01:13 Pulse Oximetry 100 11/30/24 01:13 Oxygen Delivery Room Air 11/30/24 01:13 Temperature 98.0 F 11/30/24 01:13 Pulse Rate 79 11/30/24 01:56 Respiratory Rate 18 11/30/24 01:56 Blood Pressure 83/64 L 11/30/24 01:56 Pulse Oximetry 100 11/30/24 01:56 Oxygen Delivery Room Air 11/30/24 01:13 Medical Decision Making MDM Narrative Medical decision making narrative: -Course: 44-year-old female presenting with heavy menstrual bleeding. Patient says she had soaked through multiple pads prior to arrival. test was negative. Pelvic exam did not reveal a significant amount of blood in the vaginal vault. Bleeding appears to have slowed/stopped. Hemoglobin was 8.2 with an MCV of 73.5. Our previous records from 3 years ago were 11.7. I recommended the patient stay and get a repeat H&H after 4-6 hours to see if this drop in hemoglobin is acute or chronic. Fortunately she had to go to take her children home. She says she will return to the emergency department after she dropped them off for a repeat H&H. I have sent Iron supplements to her pharmacy. Patient's blood pressure has been low throughout her stay in the low 90s high 80s. The patient says that her blood pressure is always this low. -DDX includes but is not limited to: heavy menses, blood loss anemia, acute anemia chronic anemia Vital Signs Vital Signs: Vital Signs Temperature 98.0 F 11/30/24 01:13 Pulse Rate 96 11/30/24 01:13 Respiratory Rate 17 11/30/24 01:13 Blood Pressure 92/55 L 11/30/24 01:13 Pulse Oximetry 100 11/30/24 01:13 Oxygen Delivery Room Air 11/30/24 01:13 Temperature 98.0 F 11/30/24 01:13 Pulse Rate 79 11/30/24 01:56 Respiratory Rate 18 11/30/24 01:56 Blood Pressure 83/64 L 11/30/24 01:56 Pulse Oximetry 100 11/30/24 01:56 Oxygen Delivery Room Air 11/30/24 01:13 Lab Data 11/30/24 01:42 11/30/24 01:42 Labs: Lab Results 11/30/24 Range/Units 01:42 WBC 6.9 (4.5-10.0) K/mm3 RBC 3.81 L (4.2-5.4) M/mm3 Hgb 8.2 L D (12.0-15.0) g/dL Hct 28.0 L (37.0-47.0) % MCV 73.5 L (80-100) fl MCH 21.5 L (26-34) pg MCHC 29.3 L (32-36) g/dl RDW 15.3 H (11.5-14.5) % Plt Count 332 (150-375) k/mm3 MPV 10.0 (7.4-10.4) fl Immature Gran % (Auto) 0.3 (0-0.5) % Neut % (Auto) 54.1 (45.5-73.1) % Lymph % (Auto) 34.7 (18.3-44.2) % [place] % (Auto) 7.0 (2.6-8.5) % Eos % (Auto) 2.9 (0-4.4) % Baso % (Auto) 1.0 (0.2-1.2) % Lymph # (Auto) 2.39 (0.9-3.2) K/mm3 [place] # (Auto) 0.5 (0.1-0.6) K/mm3 Eos # (Auto) 0.2 (0-0.3) K/mm3 Baso # (Auto) 0.1 (0.0-0.1) K/mm3 Abs Immat Gran (auto) 0.02 (0.00-0.031) K/mm3 Absolute Neuts (auto) 3.7 (1.3-6.7) K/mm3 Absolute Nucleated RBC 0.000 (0.0-0.012) K/mm3 Band Neutrophils % 0 (0-6) % Nucleated RBC % 0.0 (0.0-0.2) % Platelet Estimate Adequate (Adequate) Hypochromasia 1+ Ovalocytes 1+ Schistocytes None seen PT 14.3 (11.1-14.7) Seconds INR 1.1 APTT 28.0 (22.3-36.8) Seconds Sodium 135 L (137-145) mmol/L Potassium 3.9 (3.4-5.0) mmol/L Chloride 101 (98-107) mmol/L Carbon Dioxide 28 (22-30) mmol/L Anion Gap 6 (4-12) mmol/L BUN 14 (7-17) mg/dL Creatinine 1.03 H (0.7-1.0) mg/dL Estim Creat Clear Calc 48 ml/min Estimated GFR 58 L (59 - ) Glucose 88 (65-110) mg/dL Calcium 8.2 L (8.4-10.2) mg/dL Total Bilirubin 0.2 (0.2-1.3) mg/dL AST 30 (14-36) U/L ALT 17 (6-35) U/L Alkaline Phosphatase 75 (38-126) U/L Total Protein 6.5 (6.3-8.2) g/dL Albumin 3.7 (3.5-5.1) g/dL Beta HCG, Quant < 2.39 mIU/ML Blood Type O Negative Antibody Screen Negative Screen Not Reportable Baby's Blood Type Not Reportable Baby's MARGAUX Not Reportable Doses of RhIg Required 1 Discharge Plan Discharge Clinical Impression: Vaginal bleeding, Anemia Patient Disposition: Home Condition: Stable Instructions: Antibiotic Form, Anemia (ED) Additional Instructions: You were seen in the emergency department for vaginal bleeding. Your hemoglobin is much lower than it has been previous laboratory studies. You are leaving to take your children home but please return in the morning for a repeat hemoglobin to ensure that your hemoglobin is at a safe level. I have sent iron supplements to your pharmacy. Please take these once daily to improve your blood levels. Please follow-up with your OBGYN. Patient Language: Sinhala Prescriptions: New ferrous sulfate [Feosol] 325 mg (65 mg iron) tablet 325 mg PO DAILY Qty: 90 0RF No Action clonazepam 2 mg tablet sertraline 50 mg tablet methylphenidate HCl [Concerta] 27 mg tablet extended release 24hr PO prednisone 20 mg tablet See Rx Instructions .Route .COMPLEX Qty: 9 0RF Rx Instructions: Take 40 mg daily for 3 days, 20 mg daily for 3 days albuterol sulfate 90 mcg/actuation HFA aerosol inhaler 2 puff inhalation QID PRN (Reason: shortness of breath or wheezing) Qty: 6.7 0RF (DME) Aerochamber MV Spacer See Rx Instructions .Route Qty: 1 0RF Rx Instructions: As directed ofloxacin 0.3 % drops See Rx Instructions .ROUTE .COMPLEX Qty: 15 0RF Rx Instructions: put 1-2 drps into left eye every 2-4 h x 2 days, then 1-2 drps 4 times/day days 3-7 albuterol sulfate 90 mcg/actuation HFA aerosol inhaler 2 puff inhalation QID PRN (Reason: shortness of breath or wheezing) Qty: 8.5 0RF clonazepam 1 mg tablet 0.5 mg PO DAILY Qty: 3 0RF Follow-up/Referrals: PHYSICIAN NOT ON STAFF,NONSTAFF [Primary Care Provider]
--- NOTE | 2024-11-30 03:51 | PC.NURSE ---
Pt states she wants to leave due to needing to drop her kids off somewhere. MD notified. MD eason and pt came up with plan to have pt sign out AMA and have her come back this morning to repeat H and H to recheck pt hemoglobin to make sure it has not dropped anymore. Pt IV taken out. Pt aware of risks if she does not come back. pt states she understands and will come back once she drops of her kids. Pt left ED AMA.
--- NOTE | 2024-11-30 03:54 | PC.NURSE ---
MD Nails verbally states we do not need to give rhogam due to pt not being . Rhogam was not give by this rn due to MD verbal orders. Rho corey was ordered with nursing protocols when once dropped. MD Nails did not order rhogam.Pt did not receive rhogam. Rhogam was returned back to blood bank per their orders.
[2024-11-30 03:57] VITALS: BP 90/74; PULSE 78; RESP 18; O2SAT 100
== END 2024-11-30 03:58 | disposition home or self-care (01) ==
PROVIDERS: Emergency Provider Emergency Medicine
DX: N92.0 Excessive and frequent menstruation with regular cycle (principal); D64.9 Anemia, unspecified; F41.9 Anxiety disorder, unspecified; F17.290 Nicotine dependence, other tobacco product, uncomplicated; Z79.899 Other long term (current) drug therapy
CPT/HCPCS: 36415; 80053; 84702; 85025; 85461; 85610; 85730; 86850; 86900; 86901; 99284

== ENCOUNTER 2024-11-30 16:41 | Observation (INO) | payer OTHER, SELFPAY ==
[2024-11-30] VITALS (13 sets, daily range): BP systolic 72–111; BP diastolic 35–84; PULSE 55–91; RESP 17–18; TEMP 35.8–36.6; O2SAT 91–100; BMI 20.6
--- NOTE | ~2024-11-30 | US_ITS ---
EXAMINATION: US transvaginal, 12/01/2024 10:27 CDT HISTORY: AUB leading to severe anemia Comparison: None Technique: Evangelista-scale and color Doppler images were obtained. Findings: Uterus: Uterus anteverted 8.1 x 6.5 x 6.8 cm. . Endometrium is abnormally thickened measuring 2.4 cm with a heterogeneous focus of abnormal echogenicity without normal flow measuring 1.8 x 2 x 1.8 cm concerning for neoplasm. Right Ovary:Right ovary 1.3 x 2.3 x 2.6 cm, no adnexal masses or abnormal fluid. Left Ovary: Left ovary not identified due to bowel gas. Free Fluid: None Impression: Endometrial lesion detailed above concerning for neoplasm. Tissue sampling recommended Reviewed, dictated and finalized at location A. Impression: Endometrial lesion detailed above concerning for neoplasm. Tissue sampling susie mmended
--- NOTE | 2024-11-30 19:45 | ED_ITS ---
HPI - Recheck/Abnormal Lab/Rx General Chief Complaint: Recheck/Abnormal Lab/Rx Stated Complaint: bleeding Time Seen by Provider: 11/30/24 19:36 Source: patient Mode of arrival: ambulatory Limitations: no limitations History of Present Illness HPI narrative: 44 YEARS OLD WHITE FEMALE CAME TO THE ED BY PRIVATE CAR COMPLAINING OF LIGHTHEADEDNESS DIZZINESS, HEAVY MENSTRUAL CYCLE STARTED 5 DAYS AGO, GOT WORSE SUDDENLY YESTERDAY WITH A LOT OF BLOOD CLOTS, CAME TO OUR EMERGENCY ROOM, HEMOGLOBIN IS 8.2, PATIENT DECLINED TO BE ADMITTED AND GOT DISCHARGED HOME AT 4:00 A.M. TODAY. PATIENT IS 4 PARA 3 1 HISTORY OF TUBAL LIGATION DEPRESSION, ANXIETY, PATIENT IS 0 SHE REPORTS NO SMOKING OR DRINKING OR DRUGS PATIENT TELLING ME THAT THIS MORNING NOTICED THAT THE BLEEDING SLOWED DOWN A LOT. PATIENT DENIES ANY FEVER, CHILLS, NAUSEA, VOMITING OR ABDOMINAL PAIN Related Data Home Medications ?Medication ?Instructions ?Recorded ?Confirmed ?Last Taken ?Type clonazepam 2 mg tablet mg 04/10/24 Unknown History methylphenidate HCl 27 mg mg PO 04/10/24 Unknown Hist ory tablet,extended release 24 hr (Concerta) sertraline 50 mg tablet mg 04/10/24 Unknown History Allergies Allergy/AdvReac Type Severity Reaction Status Date / Time No Known Allergies Allergy Verified 11/30/24 16:47 Review of Systems 2 Review of Systems: All systems reviewed & are unremarkable except as noted in HPI and below PMFSH Past Medical History Medical History History of anxiety Social History Social History Smoking status: Current every day smoker Tobacco type: e-cigarettes/vaping Exam 2 Narrative: GENERAL APPEARANCE: WELL-DEVELOPED, WELL-NOURISHED SKIN: NORMAL COLOR HEAD: NORMOCEPHALIC, NONTRAUMATIC EYES: CLEAR CONJUNCTIVA ENT: OROPHARYNX NORMAL, EARS NORMAL, NOSE NORMAL NECK: SUPPLE, NONTENDER CHEST AND RESPIRATORY: AIRWAY PATENT, NO RESPIRATORY DISTRESS, NO ACCESSORY MUSCLE USE HEART: REGULAR RATE/RHYTHM ABDOMEN: SOFT, NONTENDER, NO ORGANOMEGALY, QUIET BOWEL SOUNDS VASCULAR: NORMAL PERIPHERAL PULSES, NORMAL CAPILLARY REFILL. MUSCULOSKELETAL: NORMAL RANGE OF MOTION, NONTENDER BACK NEUROLOGIC: ALERT AND ORIENTED ?3, REPACK ROOM WORKER IS NORMAL TESTED, NO GROSS MOTOR DEFICIT Course Consultations Consultation #1: DR ESCALONA REQUEST PELVIC ULTRASOUND, 1 UNIT BLOOD TRANSFUSION. Date: 11/30/24 Time: 21:41 Vital Signs Vital signs: Vital Signs Temperature 35.8 C L 11/30/24 16:47 Pulse Rate 55 L 11/30/24 16:47 Respiratory Rate 18 11/30/24 16:47 Blood Pressure 97/64 L 11/30/24 16:47 Pulse Oximetry 97 11/30/24 16:47 Oxygen Delivery Room Air 11/30/24 16:47 Temperature 35.8 C L 11/30/24 16:47 Pulse Rate 82 11/30/24 20:30 Respiratory Rate 17 11/30/24 20:30 Blood Pressure 102/70 11/30/24 20:30 Pulse Oximetry 99 11/30/24 20:30 Oxygen Delivery Room Air 11/30/24 16:47 MDM - Recheck/Abnormal Lab/Rx MDM Narrative Medical decision making narrative: PATIENT CAME WITH IMPROVING VAGINAL BLEED, LIGHTHEADEDNESS AND DIZZINESS VITAL SIGNS ON ARRIVAL SHOWED BLOOD PRESSURE 97/64 HEART RATE 55 OTHERWISE WITHIN NORMAL LIMIT PATIENT TESTED POSITIVE FOR ORTHOSTASIS CBC ORDERED AND SHOWED HEMOGLOBIN OF 8.4 COMPARED TO 8.2 EARLIER TODAY. IV NORMAL SALINE STARTED ULTRASOUND IS NOT AVAILABLE TONIGHT ADMIT TO DR. ESCALONA, PELVIC ULTRASOUND IN THE MORNING, TRANSFUSE 1 UNIT OF BLOOD. Differential Diagnosis Differential diagnosis: Likely other (DYSFUNCTIONAL UTERINE BLEEDING, ORTHOSTATIC HYPERTENSION) Medical Records Attestation: I reviewed the patient's medical records. Lab Data Attestation: I reviewed the patient's lab results. 11/30/24 20:36 11/30/24 20:34 Labs: Lab Results 11/30/24 11/30/24 11/30/24 Range/Units 20:34 20:35 20:36 WBC 6.0 (4.5-10.0) K/mm3 RBC 3.93 L (4.2-5.4) M/mm3 Hgb 8.4 L (12.0-15.0) g/dL Hct 29.0 L (37.0-47.0) % MCV 73.8 L (80-100) fl MCH 21.4 L (26-34) pg MCHC 29.0 L (32-36) g/dl RDW 15.3 H (11.5-14.5) % Plt Count 312 (150-375) k/mm3 MPV 9.3 (7.4-10.4) fl Immature Gran % (Auto) 0.3 (0-0.5) % Neut % (Auto) 51.4 (45.5-73.1) % Lymph % (Auto) 35.3 (18.3-44.2) % [place] % (Auto) 10.3 H (2.6-8.5) % Eos % (Auto) 1.7 (0-4.4) % Baso % (Auto) 1.0 (0.2-1.2) % Lymph # (Auto) 2.12 (0.9-3.2) K/mm3 [place] # (Auto) 0.6 (0.1-0.6) K/mm3 Eos # (Auto) 0.1 (0-0.3) K/mm3 Baso # (Auto) 0.1 (0.0-0.1) K/mm3 Abs Immat Gran (auto) 0.02 (0.00-0.031) K/mm3 Absolute Neuts (auto) 3.1 (1.3-6.7) K/mm3 Absolute Nucleated RBC 0.000 (0.0-0.012) K/mm3 Band Neutrophils % Not Reportable Nucleated RBC % 0.0 (0.0-0.2) % Platelet Estimate Adequate (Adequate) Hypochromasia 1+ Microcytosis 1+ (NORMAL) Ovalocytes 1+ Schistocytes None seen Sodium Pending Potassium Pending Chloride Pending Carbon Dioxide Pending Anion Gap Pending BUN Pending Creatinine Pending Estim Creat Clear Calc Pending Estimated GFR Pending Glucose Pending Calcium Pending Total Bilirubin Pending AST Pending ALT Pending Alkaline Phosphatase Pending Total Protein Pending Albumin Pending Blood Type Pending Antibody Screen Pending Crossmatch See Detail Critical Care Time Critical Care Time Critical Care Time: No Discharge Plan Discharge Clinical Impression: Anemia, Orthostatic hypotension, Vaginal bleeding Patient Disposition: Still a Patient Condition: Stable Patient Language: Irish Prescriptions: No Action clonazepam 2 mg tablet sertraline 50 mg tablet methylphenidate HCl [Concerta] 27 mg tablet extended release 24hr PO prednisone 20 mg tablet See Rx Instructions .Route .COMPLEX Qty: 9 0RF Rx Instructions: Take 40 mg daily for 3 days, 20 mg daily for 3 days albuterol sulfate 90 mcg/actuation HFA aerosol inhaler 2 puff inhalation QID PRN (Reason: shortness of breath or wheezing) Qty: 6.7 0RF (DME) Aerochamber MV Spacer See Rx Instructions .Route Qty: 1 0RF Rx Instructions: As directed ofloxacin 0.3 % drops See Rx Instructions .ROUTE .COMPLEX Qty: 15 0RF Rx Instructions: put 1-2 drps into left eye every 2-4 h x 2 days, then 1-2 drps 4 times/day days 3-7 albuterol sulfate 90 mcg/actuation HFA aerosol inhaler 2 puff inhalation QID PRN (Reason: shortness of breath or wheezing) Qty: 8.5 0RF clonazepam 1 mg tablet 0.5 mg PO DAILY Qty: 3 0RF ferrous sulfate [Feosol] 325 mg (65 mg iron) tablet 325 mg PO DAILY Qty: 90 0RF Follow-up/Referrals: PHYSICIAN NOT ON STAFF,NONSTAFF [Primary Care Provider]
[2024-11-30 20:44] LABS: Hematocrit 29.0 % (37.0-47.0); Hemoglobin 8.4 g/dL (12.0-15.0); Immature Granulocyte Percent A 0.3 % (0-0.5); Lymphocytes Absolute Auto 2.12 K/mm3 (0.9-3.2); Mean Corpuscular HGB Conc 29.0 g/dl (32-36); Mean Corpuscular Hemoglobin 21.4 pg (26-34); Mean Corpuscular Volume 73.8 fl (80-100); Nucleated Red Blood Cells Absolute Auto 0.000 K/mm3 (0.0-0.012); Nucleated Red Blood Cells Perc 0.0 % (0.0-0.2); Platelet Count Result 312 k/mm3 (150-375); Red Blood Count 3.93 M/mm3 (4.2-5.4); White Blood Count 6.0 K/mm3 (4.5-10.0)
[2024-11-30 21:13] LABS: Hypochromasia 1+; Microcytosis 1+ (NORMAL); Ovalocytes 1+
[2024-11-30 21:14] LABS: Schistocytes None Seen
--- NOTE | 2024-11-30 21:19 | PC.NURSE ---
VORB to give 1L NS bolus, order placed.
[2024-11-30] MEDS: SODIUM CHLORIDE 0.9% IV 1,000 ML 999 ML IV CONT ×2 (21:21→22:10)
[2024-11-30 22:13] LABS: Alanine Aminotransferase 16 U/L (6-35); Albumin Level 3.6 g/dL (3.5-5.1); Alkaline Phosphatase 53 U/L (38-126); Anion Gap 5 mmol/L (4-12); Aspartate Amino Transferase 26 U/L (14-36); Bilirubin,Total 0.2 mg/dL (0.2-1.3); Blood Urea Nitrogen 13 mg/dL (7-17); Calcium 8.1 mg/dL (8.4-10.2); Carbon Dioxide 29 mmol/L (22-30); Chloride 100 mmol/L (98-107); Estimated Glomerular Filt Rate > 60; Glucose 91 mg/dL (65-110); Potassium 3.7 mmol/L (3.4-5.0); Sodium 134 mmol/L (137-145); Total Protein 6.6 g/dL (6.3-8.2)
[2024-11-30] MEDS: SODIUM CHLORIDE 0.9% IV 1,000 ML 125 ML IV CONT (23:29)
[2024-12-01] VITALS (9 sets, daily range): BP systolic 97–117; BP diastolic 58–74; PULSE 74–88; RESP 16–18; TEMP 36.5–37.1; O2SAT 97–100
[2024-12-01] MEDS: ACETAMINOPHEN 500 MG TABLET 1000 MG PO (00:18)
--- NOTE | 2024-12-01 00:18 | PC.NURSE ---
Patient insists she needs rhogam shot prior to any blood transfusion. Explained to patient it is only required while . Patient not comfortable with this information. Spoke with Dr. Blanco per patient request. verified no rhogam is needed prior to blood transfusion.
--- NOTE | 2024-12-01 00:26 | PC.NURSE ---
Discussed information provided by Dr. Blanco with patient. Patient continues to decline blood transfusion at this time.
[2024-12-01 05:29] LABS: Hematocrit 24.2 % (37.0-47.0); Hemoglobin 7.0 g/dL (12.0-15.0); Immature Granulocyte Percent A 0.2 % (0-0.5); Lymphocytes Absolute Auto 1.54 K/mm3 (0.9-3.2); Mean Corpuscular HGB Conc 28.9 g/dl (32-36); Mean Corpuscular Hemoglobin 21.4 pg (26-34); Mean Corpuscular Volume 74.0 fl (80-100); Nucleated Red Blood Cells Absolute Auto 0.000 K/mm3 (0.0-0.012); Nucleated Red Blood Cells Perc 0.0 % (0.0-0.2); Platelet Count Result 240 k/mm3 (150-375); Red Blood Count 3.27 M/mm3 (4.2-5.4); White Blood Count 4.1 K/mm3 (4.5-10.0)
[2024-12-01 05:48] LABS: Anisocytosis 1+; Hypochromasia 1+; Microcytosis 1+ (NORMAL); Ovalocytes 1+; Schistocytes None Seen
[2024-12-01 05:54] LABS: Alanine Aminotransferase 12 U/L (6-35); Albumin Level 2.8 g/dL (3.5-5.1); Alkaline Phosphatase 50 U/L (38-126); Anion Gap 3 mmol/L (4-12); Aspartate Amino Transferase 22 U/L (14-36); Bilirubin,Total 0.2 mg/dL (0.2-1.3); Blood Urea Nitrogen 6 mg/dL (7-17); Calcium 6.9 mg/dL (8.4-10.2); Carbon Dioxide 24 mmol/L (22-30); Chloride 111 mmol/L (98-107); Estimated CRCL calculation 91 ml/min; Estimated Glomerular Filt Rate > 60; Glucose 81 mg/dL (65-110); Potassium 3.2 mmol/L (3.4-5.0); Sodium 138 mmol/L (137-145); Total Protein 5.3 g/dL (6.3-8.2)
--- NOTE | 2024-12-01 06:33 | ADMGEN ---
This patient, Nyla Lizarraga, was admitted to [facility] Surg Room 319-01. Patient/family oriented to hospital policies and general routines including ID bracelet, bed and alarms, visiting hours, pain management, procedures, bathroom and other care routines, personal items, smoking policy, room service/diet, and visiting hours. Information on how to activate the Rapid Response Team has been discussed. Patient/Family are encouraged to report perceived risks to care and to ask questions if they do not understand what they are told or what they should do.
--- NOTE | 2024-12-01 06:33 | PC.NURSE ---
Patient refused blood transfusion, wanted to wait til Dr. Blanco comes to talk with her this morning. Educated pt about sign, symptoms, risk and benefits of blood transfusion due the low H&H lab values. Dr. Blanco notified and aware of patient decision. Pt stated she understood teach. Will continue to monitor pt progress.
--- NOTE | 2024-12-01 08:10 | PM.IMHP ---
H&P: HPI History of Present Illness Date/Time: 12/01/24 08:10 Chief Complaint: vaginal bleeding; dizzy/light headed Narrative: Nyla is a perimenopausal 44yo [id number], LMP 11/26/24 who presented to the ER early yesterday AM was found to be anemic with hypotension but was unable to stay as she had to go care for her children. She re-presented last night feeling more symptomatic (dizzy, light headed, headache) and was willing to stay overnight. She reports her vaginal bleeding has significant decreased. She got 2L of IV fluids in the ER. She refused the blood transfusion overnight and reports her headache is worse today; her hgb was 7.0 this AM. She reports her periods have been regular, but this week she was passing clots as big as golf balls and it lasted a few days longer than normal. She does report quite a bit of pelvic pain and she normally does not have that. She does have hot flashes and night sweats. She reports seeing a TEST HOLE DRILLER in [facility] about a year ago; reports a normal pap smear. Review of Systems Constitutional: Constitutional: Denies chills, Denies fever(s) and Denies headache(s) Eyes: Eyes: Denies change in vision ENT: Reports dizziness and Denies headache(s) Cardiovascular: Cardiovascular: Denies chest pain and Denies dyspnea Respiratory: Respiratory: Denies cough and Denies dyspnea Gastrointestinal: Gastrointestinal: Denies abdominal pain and Denies change in stool character Genitourinary: Genitourinary: Reports abnormal menses, Reports menorrhagia, Denies pelvic pain, Denies vaginal discharge, Denies vaginal odor and Denies vaginal pruritus Neurologic: Reports dizziness and Denies headache(s) Psychiatric: Psychiatric: Denies anxiety and Denies depression [facility] Past Medical History Medical History History of anxiety Social History Social History Smoking status: Former smoker Tobacco type: cigarettes Second hand tobacco smoke exposure: No Alcohol intake: former Substance use: never Lack of Transportation: No Lack of Food: Never True Current Housing: I Have Housing Concerned About Future Housing: No Difficulty Paying Gas/Electric Bills: No Difficulty Paying for Meds: No Currently Unemployed: No Education: Associate Degree Difficulty w/ Childcare or Family Care: No Spiritual care concerns: No Meds Home Medications and Allergies Home Medications ?Medication ?Instructions ?Recorded ?Confirmed ?Type methylphenidate HCl 27 mg 27 mg PO DAILY 04/10/24 11/30/24 History tablet,extended release 24 hr (Concerta) sertraline 50 mg tablet 50 mg PO DAILY 04/10/24 11/30/24 History clonazepam 1 mg tablet 1 mg PO BID 11/30/24 11/30/24 History norethindrone (contraceptive) 0.35 0.35 mg PO DAILY #84 tabs 12/01/24 Rx mg tablet ([place]) Allergies Allergy/AdvReac Type Severity Reaction Status Date / Time No Known Allergies Allergy Verified 11/30/24 16:47 Vital Signs Vital Signs - 24 hr 11/30/24 16:47 11/30/24 16:56 11/30/24 20:06 Temperature 96.5 F L Pulse Rate 55 L 80 Respiratory Rate 18 17 Blood Pressure 97/64 L 91/61 L 106/68 Pulse Oximetry 97 98 Oxygen Delivery Room Air 11/30/24 20:15 11/30/24 20:16 11/30/24 20:17 Temperature Pulse Rate 74 Respiratory Rate Blood Pressure 99/71 L 85/45 L Pulse Oximetry 98 97 Oxygen Delivery 11/30/24 20:18 11/30/24 20:18 11/30/24 20:20 Temperature Pulse Rate 82 91 Respiratory Rate Blood Pressure 83/52 L 72/35 L 85/45 L Pulse Oximetry 91 Oxygen Delivery 11/30/24 20:21 11/30/24 20:23 11/30/24 20:30 Temperature Pulse Rate 82 Respiratory Rate 17 Blood Pressure 83/52 L 72/35 L 102/70 Pulse Oximetry 97 100 99 Oxygen Delivery 11/30/24 22:44 11/30/24 22:58 11/30/24 23:35 Temperature 97.9 F Pulse Rate 84 85 Respiratory Rate 17 18 Blood Pressure 111/84 104/75 Pulse Oximetry 100 100 Oxygen Delivery Room Air 12/01/24 00:00 12/01/24 06:00 Temperature 97.7 F 98.3 F Pulse Rate 75 74 Respiratory Rate 18 18 Blood Pressure 104/58 L 97/59 L Pulse Oximetry 98 97 Oxygen Delivery Exam Const: General: cooperative, healthy appearing, comfortable and no acute distress Orientation/consciousness: patient oriented x3 Resp: Effort & Inspection: normal respiratory effort Cardio: Rate: regular rate GI: Inspection: normal to inspection GI Palp: No abdominal tenderness and Yes Soft to palpation : Other: unable to palpate fundus on abdominal exam; nontender no blood on pad Skin: General skin exam: normal color Neuro: General: patient oriented x3 Extrem: General: normal to inspection Psych: Appearance: grossly normal Affect: normal affect Attitude: cooperative H&P: Results Labs Labs: Short CBC 11/30/24 12/01/24 Range/Units 20:36 05:14 WBC 6.0 4.1 L (4.5-10.0) K/mm3 Hgb 8.4 L 7.0 L (12.0-15.0) g/dL Hct 29.0 L 24.2 L (37.0-47.0) % Plt Count 312 240 (150-375) k/mm3 BMP 11/30/24 12/01/24 20:34 05:14 Sodium 134 L 138 Potassium 3.7 3.2 L Chloride 100 111 H Carbon Dioxide 29 24 BUN 13 6 L D Creatinine 0.67 L 0.52 L Glucose 91 81 Calcium 8.1 L 6.9 L Liver Function 11/30/24 12/01/24 Range/Units 20:34 05:14 Total Bilirubin 0.2 0.2 (0.2-1.3) mg/dL AST 26 22 (14-36) U/L ALT 16 12 (6-35) U/L Alkaline Phosphatase 53 50 (38-126) U/L Albumin 3.6 2.8 L (3.5-5.1) g/dL Assessment and Plan Assessment and plan (1) Abnormal uterine bleeding (AUB): Code(s): N93.9 - Abnormal uterine and vaginal bleeding, unspecified Status: Acute (2) Anemia: Code(s): D64.9 - Anemia, unspecified Status: Acute Plan - symptomatic anemia; s/p 2L IV fluids; refused blood transfusion last night; h/h 7.0/24.2, crossed for 1u pRBC and recommend she accept blood transfusion; will then give 500mg IV venofer after 1u pRBC - TEST HOLE DRILLER US ordered, pending - will start POP to help decrease further AUB - will need to f/u outpatient; briefly discussed progesterone options vs surgical interventions - plan for discharge home this PM after 1u pRBC + venofer
[2024-12-01] MEDS: TUBING, BLOOD PLUM PUMP TUBING 1 EACH XX (10:40)
[2024-12-01] MEDS: SODIUM CHLORIDE 0.9% IV 1,000 ML 125 ML IV CONT (10:41)
--- NOTE | 2024-12-01 10:52 | PC.NURSE ---
Sent PCT down to get the blood for transfusion and lab informed PCT that the blood was not ready at this time due to some testing that needed to be done. This nurse will be called when blood is ready to be picked up and will administer at that time.
[2024-12-01] MEDS: IBUPROFEN 600 MG TABLET PO (11:48)
[2024-12-01 12:14] LABS: Hematocrit 28.3 % (37.0-47.0); Hemoglobin 8.4 g/dL (12.0-15.0); Mean Corpuscular HGB Conc 29.7 g/dl (32-36); Mean Corpuscular Hemoglobin 21.9 pg (26-34); Mean Corpuscular Volume 73.7 fl (80-100); Platelet Count Result 294 k/mm3 (150-375); Red Blood Count 3.84 M/mm3 (4.2-5.4); White Blood Count 4.4 K/mm3 (4.5-10.0)
[2024-12-01] MEDS: IRON SUCROSE COMPLEX 400 MG, IRON SUCROSE COMPLEX 100 MG in SODIUM CHLORIDE 0.9% IV 250 ML 79 MG IVPB (16:05)
--- NOTE | 2024-12-04 07:40 | P.DS_ITS ---
DS: Admitting Diagnosis Discharge Date 12/01/24 Admitting Diagnosis symptomatic anemia AUB DS: Discharge Diagnosis Discharge Diagnosis (1) Abnormal uterine bleeding (AUB): Code(s): N93.9 - Abnormal uterine and vaginal bleeding, unspecified Status: Acute (2) Anemia: Code(s): D64.9 - Anemia, unspecified Status: Acute DS: Summary Hospital Course Hospital Course: Nyla is a perimenopausal 44yo [id number], LMP 11/26/24 who presented to the ER early yesterday AM was found to be anemic with hypotension but was unable to stay as she had to go care for her children. She re-presented last night feeling more symptomatic (dizzy, light headed, headache) and was willing to stay overnight. She reports her vaginal bleeding has significant decreased. She got 2L of IV fluids in the ER. She refused the blood transfusion overnight and reports her headache is worse today; her hgb was 7.0 this AM. She reports her periods have been regular, but this week she was passing clots as big as golf balls and it lasted a few days longer than normal. She does report quite a bit of pelvic pain and she normally does not have that. She does have hot flashes and night sweats. She reports seeing a OFFICE MACHINE TECHNICIAN in [facility] about a year ago; reports a normal pap smear. She did finally agree to blood transfusion x 1 unit pRBC after her hgb returned at 7.0. She then also got venofer IV. OFFICE MACHINE TECHNICIAN US showed endometrial mass concerning for submucousal fibroid. She was discharged home on norethindrone 0.35mg daily until she can follow up outpatient and be scheduled for surgery (hysteroscopic myomectomy). Status at Discharge Functional status at discharge: independent ambulation Overall status at discharge: patient is back to baseline Time Spent with Patient Time attestation: Total time spent providing and/or coordinating discharge services: Time spent: Less than 30 minutes Exam Const: General: cooperative, healthy appearing, comfortable and no acute distress Orientation/consciousness: patient oriented x3 Resp: Effort & Inspection: normal respiratory effort Cardio: Rate: regular rate GI: Inspection: normal to inspection GI Palp: No abdominal tenderness and Yes Soft to palpation : Other: unable to palpate fundus on abdominal exam; nontender no blood on pad Skin: General skin exam: normal color Neuro: General: patient oriented x3 Extrem: General: normal to inspection Psych: Appearance: grossly normal Affect: normal affect Attitude: cooperative Discharge Plan Discharge Attending physician on discharge: Meredith Blanco Consulting providers: Nate Bernardo Discharging Clinician: Meredith Blanco Patient Disposition: Home Activity: august shower Diet: regular Patient Instructions: Antibiotic Form Patient Language: Turkish Stand Alone Forms: General Discharge Information Follow-up/Referrals: Meredith Blanco MD [Physician, COMPOSITE BOND TECHNICIAN] - 2 Weeks Discharge Medications: New norethindrone (contraceptive) [Aubree] 0.35 mg tablet 0.35 mg PO DAILY Qty: 84 0RF Continued sertraline 50 mg tablet 50 mg PO DAILY methylphenidate HCl [Concerta] 27 mg tablet extended release 24hr 27 mg PO DAILY clonazepam 1 mg tablet 1 mg PO BID Date of admission: 11/30/24 22:12 Primary Care Provider: PHYSICIAN NOT ON STAFF,NONSTAFF Admitting Provider: Meredith Blanco Attending physician on admission: Meredith Blanco Condition: Stable
== END 2024-12-01 20:00 | disposition home or self-care (01) ==
LOC: ANHED 22:10 → ANH3MEDSUR 22:49
PROVIDERS: Admitting Provider Obstetrics & Gynecology; Emergency Provider Emergency Medicine; Visit Provider Obstetrics & Gynecology
DX: N93.9 Abnormal uterine and vaginal bleeding, unspecified (principal); D64.9 Anemia, unspecified; R93.89 Abnormal findings on diagnostic imaging of other specified body structures; I95.1 Orthostatic hypotension; F17.210 Nicotine dependence, cigarettes, uncomplicated; N95.9 Unspecified menopausal and perimenopausal disorder
CPT/HCPCS: 36415; 36430; 76830; 80053; 84702; 85025; 85027; 85461; 85610; 85730; 86850; 86900; 86901; 86923; 96360; 96361; 96374; 99284; 99285; A9270; G0378; G0379; J1756; J7030; J7050; P9016